=== PATIENT | female | born 1975 | race Caucasian/White ===

== ENCOUNTER 2017-03-18 21:05 | Emergency (ER) | payer MEDICAID ==
[2017-03-19] MEDS: ONDANSETRON (ODT) 4 MG TAB ODT (00:13)
[2017-03-19] MEDS: HYDROCODONE/APAP (10/325) TAB PO (00:13)
== END 2017-03-19 02:49 | disposition home or self-care (01) ==
LOC: FTE 21:05
DX: S82.92XA Unspecified fracture of left lower leg, initial encounter for closed fracture (principal); I10 Essential (primary) hypertension; E11.9 Type 2 diabetes mellitus without complications; W18.39XA Other fall on same level, initial encounter; Y92.9 Unspecified place or not applicable; Z79.84 Long term (current) use of oral hypoglycemic drugs
CPT/HCPCS: 29515; 73610; 99283-25